=== PATIENT | female | born 1985 | race Caucasian/White ===

== ENCOUNTER 2017-11-26 19:00 | Observation (INO) | payer OTHER ==
[2017-11-26] MEDS ORDERED: SODIUM CHLORIDE 0.9% 1,000 ML IV ONE ×2 (19:38→21:56)
[2017-11-26] MEDS ORDERED: ESTROGENS, CONJUGATED 25 MG VIAL IVP STA (19:38)
--- NOTE | 2017-11-26 19:41 | ED Physician Documentation ---
History of Present Illness - Stated complaint Stated Complaint: HEAVY MENSTRUAL BLEEDING - Chief complaint Chief Complaint: General - History obtained from History obtained from: Patient, EMS - History of Present Illness Timing: Other (She had Depo-Provera the first time a couple of weeks ago. Starting 2 days ago she had heavy vaginal bleeding which was less today and then again more today. It is not painful. She had a syncopal episode today but does not feel dizzy or lightheaded when supine.) Review of Systems Ten Systems: 10 systems reviewed and negative Constitutional: denies: Fever, Chills GI: denies: Abdominal Pain, Nausea, Vomiting, Diarrhea : denies: Dysuria, Frequency PD PAST MEDICAL HISTORY - Past Medical History Past Medical History: No - Past Surgical History Past Surgical History: No - Allergies Allergies/Adverse Reactions: Allergies Allergy/AdvReac Type Severity Reaction Status Date / Time No Known Drug Allergies Allergy Verified 11/21/14 00:47 - Social History Does the pt smoke?: No Smoking Status: Never smoker Does the pt drink ETOH?: No Does the pt have substance abuse?: No - Family History Family history: reports: Non contributory - Immunizations Immunizations are current?: Yes - POLST Patient has POLST: No PD ED PE NORMAL - Vitals Vital signs reviewed: Yes (Tachycardic) - General General: Alert and oriented X 3, No acute distress - HEENT HEENT: PERRL, EOMI - Neck Neck: Supple, no meningeal sign, No bony TTP - Cardiac Cardiac: RRR, No murmur - Respiratory Respiratory: No respiratory distress, Clear bilaterally - Abdomen Abdomen: Soft, Non tender - Back Back: No CVA TTP, No spinal TTP - Extremities Extremities: No edema, No calf tenderness / cord - Neuro Neuro: Alert and oriented X 3, Normal speech Results - Vitals Vitals: Vital Signs - 24 hr 11/26/17 11/26/17 19:05 21:15 Temperature 36.8 C Heart Rate 98 106 H Respiratory 18 18 Rate Blood Pressure 101/66 O2 Saturation 100 98 Oxygen O2 Source Room air - Labs Labs: Laboratory Tests 11/26/17 11/26/17 11/26/17 19:51 19:51 19:51 WBC 15.9 H RBC 3.20 L Hgb 9.3 L Hct 27.6 L MCV 86.1 MCH 29.0 MCHC 33.6 RDW 13.3 Plt Count 309 MPV 7.3 L Neut # 12.8 H Lymph # 2.4 [place] # 0.6 Eos # 0.0 Baso # 0.1 Absolute Nucleated RBC 0.00 Nucleated RBC % 0.0 Sodium 135 Potassium 3.3 L Chloride 104 Carbon Dioxide 22 Anion Gap 9.0 BUN 17 Creatinine 0.9 Estimated GFR (MDRD) 74 L Glucose 126 H Calcium 8.4 L HCG, Quant Blood Type O NEGATIVE Antibody Screen NEGATIVE 11/26/17 11/26/17 19:51 21:19 WBC RBC Hgb 8.0 L Hct 23.6 L MCV MCH MCHC RDW Plt Count MPV Neut # Lymph # [place] # Eos # Baso # Absolute Nucleated RBC Nucleated RBC % Sodium Potassium Chloride Carbon Dioxide Anion Gap BUN Creatinine Estimated GFR (MDRD) Glucose Calcium HCG, Quant < 0.60 Blood Type Antibody Screen - Rads (name of study) Pelvic sono Radiology: EMP read contemporaneously (11mm endometrium, poss R ov or paraov cyst) PD MEDICAL DECISION MAKING - ED course ED course: 32-year-old woman with recent LEEP procedure and recently started on Depo- Provera presents with heavy vaginal bleeding, some tachycardia, and a syncopal episode. She was administered IV fluids and labs were checked notable for a hemoglobin of 9.3 and negative serum test. Ultrasound as shown. H&H rechecked after only about an hour and a half with a 1.3 point drop to 8.0 on the hemoglobin. Spoke with Dr. Ash, the on-call hydroelectric plant operator who will come in and see her and observe her for continued vaginal bleeding in the setting of worsening anemia. She had been administered IV Premarin here. Blood was readied. Departure - Departure Disposition: ED Place in Observation Clinical Impression: Vagina bleeding, Anemia due to acute blood loss Condition: Stable
[2017-11-26 20:01] LABS: BASOPHILS # (AUTO) 0.1 10^3/uL (0.0-0.1); BASOPHILS % (AUTO) 0.5 %; EOSINOPHILS % (AUTO) 0.1 %; HGB - HEMOGLOBIN 9.3 g/dL (12.0-16.0); LYMPHOCYTES # (AUTO) 2.4 10^3/uL (1.5-3.5); LYMPHOCYTES % (AUTO) 14.9 %; MEAN CORPUSCULAR HGB CONC 33.6 g/dL (32.0-36.0); MEAN CORPUSCULAR VOLUME 86.1 fL (81.0-99.0); MEAN PLATELET VOLUME 7.3 fL (7.9-10.8); MONOCYTES # (AUTO) 0.6 10^3/uL (0.0-1.0); MONOCYTES % (AUTO) 3.9 %; NEUTROPHILS # (AUTO) 12.8 10^3/uL (1.5-6.6); NEUTROPHILS % (AUTO) 80.6 %; PLT - PLATELET COUNT 309 10^3/uL (130-450); RED CELL DISTRIBUTION WIDTH 13.3 % (12.0-15.0); WHITE BLOOD COUNT 15.9 x10^3/uL (4.8-10.8)
[2017-11-26 20:08] LABS: CALCIUM 8.4 mg/dL (8.5-10.3); CREATININE 0.9 mg/dL (0.4-1.0)
--- NOTE | 2017-11-26 21:43 | Ultrasound Preliminary Report ---
Exam: US PELVIC NON OB W/DOPPLER IMPRESSION: 1. Endometrium is 11 mm in thickness. 2. No ultrasound finding to explain the vaginal bleeding. 3. Possible right adnexal or paraovarian cyst or lymph node of doubtful acute significance. [facility] SITE ID: [id number]
--- NOTE | 2017-11-26 21:43 | Ultrasound Report ---
EXAM: PELVIC ULTRASOUND WITH DOPPLER EXAM DATE: 11/26/2017 09:21 PM. CLINICAL HISTORY: Heavy vb. COMPARISON: None. TECHNIQUE: Realtime transabdominal pelvic scan performed to identify the uterus and adnexa and as an overview of other pelvic structures, with static image documentation. Doppler images obtained. FINDINGS: Uterus: 10.1 x 4 x 5.8 cm, volume 121 cc. Anteverted position. No focal uterine mass. Masses: None. Endometrium: 11 mm. No focal hypervascular area along the endometrium on the images which included Do ppler. Cervix: Unremarkable. Right Ovary: 3.2 x 1.8 x 2.8 cm, volume 8.2 cc. Normal echotexture and blood flow. There is a hypoech oic area adjacent to the right ovary measuring 1.4 x 1.1 x 1.4 cm of uncertain etiology and significa nce. Left Ovary: 3.5 x 1.6 x 1.4 cm, volume 4.2 cc. Normal echotexture and blood flow. Free Fluid: None. Other: None. IMPRESSION: 1. Endometrium is 11 mm in thickness. 2. No ultrasound finding to explain the vaginal bleeding. 3. Possible right adnexal or paraovarian cyst or lymph node of doubtful acute significance. [facility] Referring Provider Line: [phone] SITE ID: [id number]
[2017-11-26] MEDS ORDERED: oxyCODONE 5 MG TABLET PO PRN (22:57)
[2017-11-26] MEDS ORDERED: ONDANSETRON 4 MG/2 ML VIAL IVP PRN (22:57)
[2017-11-26] MEDS ORDERED: ZOLPIDEM 5 MG TABLET PO PRN (22:57)
[2017-11-26] MEDS ORDERED: SODIUM CHLORIDE FLUSH 0.9% 10 ML SYRINGE IVP PRN (22:57)
[2017-11-26] MEDS ORDERED: HYDROmorphone 1 MG/ML SYRINGE IVP PRN (22:57)
[2017-11-27] MEDS: SODIUM CHLORIDE FLUSH 0.9% 10 ML SYRINGE IVP SCH ×3 (00:46→17:44)
[2017-11-27] MEDS: D5.45NS W/20 MEQ KCL 1,000 ML IV SCH ×2 (00:55→13:58)
[2017-11-27] MEDS: IBUPROFEN 600 MG TABLET PO PRN ×2 (00:58→07:04)
--- NOTE | 2017-11-27 01:16 | HISTORY & PHYSICAL EXAMINATION ---
DATE OF SERVICE: 11/26/2017 Physician: Pranay Ash MD DIAGNOSES 1. Severe vaginal bleeding. 2. Status post LEEP procedure at [facility] 12 days ago. 3. Severe anemia. HISTORY OF PRESENT ILLNESS: The patient is a 32-year-old 3, para 2-0-1- 2, woman who underwent a LEEP procedure on 11/14/[address] Agudelo at the [facility] clinic. Post-procedure, she did not have any signs of infection and only scant bleeding. Pathology report has not been called back yet. On Friday, she began passing clots briskly. She became faint and by her account, passed out. She did not report this incident to Dr. Agudelo or anyone else. The bleeding spontaneously stopped, and she had a normal Friday. On Friday morning, she began to pass clots again and passed out. Syncope alarmed her mother, and at 1800, she came to [facility] ED by [facility]. She has not had her initial followup appointment with Dr. Agudelo; that is scheduled for the . She has received injection of Depo- Provera because her usual ParaGard IUD was removed at the time of LEEP. Currently, she reports mild orthostasis while in the hospital, and she is tachycardic with pulse of 100 but maintaining blood pressure. PAST MEDICAL HISTORY: No chronic disease history. PAST SURGICAL HISTORY: None, other than LEEP, mentioned above. ALLERGIES: NONE. MEDICATIONS: None. SOCIAL HISTORY: [place] , lives at home with her 3 children. Her currently away in [place] on [employer] business. No drug, tobacco or alcohol use. FAMILY HISTORY: No notable history. No gynecologic cancers. REVIEW OF SYSTEMS CONSTITUTIONAL: Weak, "woozy." HEENT: Negative. PULMONARY: Negative. CARDIAC: Negative. GI: Negative. BREASTS: Negative. : Dysplasia as noted above, otherwise negative. Last menstrual period is . Menstrual intervals at times irregular and bleeding heavy. MUSCULOSKELETAL: Negative. SKIN: Negative. NEUROLOGIC: Negative. PSYCHIATRIC: Negative. PHYSICAL EXAMINATION GENERAL: The patient is lying comfortably in bed, quite composed and calm, alert and cooperative. VITAL SIGNS: Temperature 98.2, initial pulse 98, current 106, blood pressure 101/66, respirations 18, saturation 98%. HEENT: Supple neck. No thyromegaly. Moist membranes. LUNGS: Clear to auscultation. CARDIAC: Tachycardic flow murmur, no gallop. BREASTS: Deferred. ABDOMEN: Soft, nontender, flat. EXTERNAL GENITALIA: Normal hair distribution. VAGINA: Old clotted blood in the vault. No lesions or discharge. CERVIX: Friable, clot in place. Vaginal packing placed. Cervix not well visualized because of adherent blood clot. UTERUS: Normal size, anteverted, anteflexed. Ovaries normal. EXTREMITIES: Warm, dry. Moves all 4 extremities well. NEUROLOGIC: Grossly intact. No sensory or motor disturbances noted. Cranial nerves intact. SKIN: Skin survey finds no rash or lesions. LABORATORY DATA: 1999 hemoglobin 9.3. 2114 hemoglobin 8.0. Normal indices, platelets 309. Sodium 135, potassium mildly depressed at 3.3, carbon dioxide 22, glucose 126, calcium 8.4. HCG negative. ASSESSMENT AND PLAN: The patient has experienced a substantial bleed post-LEEP procedure and suspect that there has been some dislodgement of the eschar clot. Though she is symptomatic from the blood loss, current exam does not find bleeding to be ongoing. However , given a hemoglobin of 8, it would be prudent to watch her in case she has another bout of severe bleeding. She has been previously typed and screened. Endometrial stripe of 11 is not unusual in a menstruating woman. There are no fibroids or any other explanation for the bleeding. PLAN: Vagina packed to stabilize LEEP crater clot. Hospital observation, serial CBC, IV fluid support, and reevaluation in 12 hours. TD: 11/27/2017 01:15 HANK
[2017-11-27 07:28] LABS: BASOPHILS # (AUTO) 0.1 10^3/uL (0.0-0.1); BASOPHILS % (AUTO) 0.7 %; EOSINOPHILS % (AUTO) 0.3 %; LYMPHOCYTES # (AUTO) 2.2 10^3/uL (1.5-3.5); LYMPHOCYTES % (AUTO) 24.9 %; MEAN CORPUSCULAR HEMOGLOBIN 29.1 pg (27.0-31.0); MEAN CORPUSCULAR HGB CONC 33.2 g/dL (32.0-36.0); MEAN CORPUSCULAR VOLUME 87.7 fL (81.0-99.0); MEAN PLATELET VOLUME 7.9 fL (7.9-10.8); MONOCYTES # (AUTO) 0.5 10^3/uL (0.0-1.0); MONOCYTES % (AUTO) 5.9 %; NEUTROPHILS % (AUTO) 68.2 %; PLT - PLATELET COUNT 229 10^3/uL (130-450); RED BLOOD COUNT 2.26 10^6/uL (4.20-5.40); WHITE BLOOD COUNT 8.8 x10^3/uL (4.8-10.8)
[2017-11-27 07:31] LABS: HGB - HEMOGLOBIN 6.6 g/dL (12.0-16.0)
[2017-11-27] MEDS ORDERED: diphenhydrAMINE INJ 50 MG/ML VIAL IVP PRN (08:24)
--- NOTE | 2017-11-27 08:58 | PROVIDER PROGRESS NOTE ---
Subjective - General Admit Date: 11/26/17 Procedure Date: 11/27/17 Post Op Days: 0 Procedure Performed: Intended procedure, Stormorf sutures of the cervix; dilatation and curettag - Review of Systems Wound/Incisions: positive: Other (Packing in place and no bleedthrough evident) General: positive: Fatigue, Other (Mild orthostatic change) HEENT: positive: No symptoms Pulmonary: positive: No symptoms Cardiovascular: positive: No symptoms Gastrointestinal: positive: No symptoms Genitourinary: positive: Other (Vaginal bleeding noted last night on admission) Musculoskeletal: positive: No symptoms Skin: positive: No symptoms Neurological: Psychiatric: positive: No symptoms Objective - Patient Data Vital Signs: Vital Signs x48h Temp Pulse Resp BP Pulse Ox 11/27/17 08:38 115 H 118/59 L 11/27/17 08:20 99.0 F 105 H 18 83/45 L 100 11/27/17 05:45 98.1 F 109 H 17 94/50 L 100 Weight: Weight 11/25/17 11/26/17 11/27/17 23:59 23:59 23:59 Weight (kg) 52.163 kg 53.5 kg Intake & Output: Intake and Output Totals x24h 11/25/17 11/26/17 11/27/17 23:59 23:59 23:59 Intake Total 1324.167 Output Total 575 Balance 749.167 - Lab Results Lab Results: 11/27/17 07:03 11/26/17 19:51 Other Lab Results: Lab Results x24hrs 11/27/17 Range/Units 07:03 WBC 8.8 (4.8-10.8) x10^3/uL RBC 2.26 L (4.20-5.40) 10^6/uL Hgb 6.6 L* (12.0-16.0) g/dL Hct 19.8 L* (37.0-47.0) % MCV 87.7 (81.0-99.0) fL MCH 29.1 (27.0-31.0) pg MCHC 33.2 (32.0-36.0) g/dL RDW 13.0 (12.0-15.0) % Plt Count 229 (130-450) 10^3/uL MPV 7.9 (7.9-10.8) fL Neut # 6.0 (1.5-6.6) 10^3/uL Lymph # 2.2 (1.5-3.5) 10^3/uL [place] # 0.5 (0.0-1.0) 10^3/uL Eos # 0.0 (0.0-0.7) 10^3/uL Baso # 0.1 (0.0-0.1) 10^3/uL Absolute Nucleated RBC 0.00 x10^3/uL Nucleated RBC % 0.0 /100WBC - Current Medications Current Medications: Current Medications Generic Name Dose Route Start Last Admin Trade Name Freq PRN Reason Stop Dose Admin Potassium Chloride/Dextrose/Sod Cl 1,000 mls @ 100 mls/hr 11/26/17 23:00 07:08 D5.45ns W/20 Meq Kcl IV 100 mls/hr .Q10H MARQUEZ Infusion Ibuprofen 600 mg 11/26/17 22:57 11/27/17 07:04 Motrin PO 600 mg Q6HR PRN Administration Pain 1 to 4 Sodium Chloride 10 ml 11/27/17 01:00 11/27/17 00:46 Normal Saline Flush 0.9% IVP Not Given 0100,0900,1700 [facility] Physical Exam - Physical Exam General: positive: Alert, Other (Mild anxiety) HEENT: positive: Moist mucous membranes Neck: positive: Supple w/out meningeal sx Cardiac: positive: Regular Rate, Murmur Present (Flow murmur) Resipratory: positive: Clear to ausultation roberto Abdomen: positive: Normal Bowel sounds, Other (No tenderness) Female : positive: Other (Vaginal packing dry) Extremities: positive: No pedal edema, Other (Fingertips cool) Neurologic: positive: Alert and Oriented X 3, Normal Sensation, Normal Speech Assessment/Plan - Assessment/Plan Assessment: . Patient currently has a deep anemia as documented by a hemoglobin of 6. Do not believe the patient to be currently bleeding but rather the effects of large amounts of hemorrhage on Friday and Friday. Apparent source of the bleeding is the LEEP wound. Packing is stabilized the clot momentarily on the LEEP crater but on removal there is a significant probability of recurrent bleeding. Therefore cervical Sturmdorf sutures are indicated. Patient's anemia is becoming symptomatic and transfusion is necessary. Plan: . Today's plan * Transfusion of 1 unit packed red blood cells this morning. * Delay removal of packing until in the OR. * Placement of cervical sutures. Dilatation and curettage. * Possible placement of intrauterine device. * Requested copy of LEEP procedure report inclusive of cervical pathology from the [facility]. * Discussed plan with patient. OR and anesthesia informed.
[2017-11-27] MEDS ORDERED: ALPRAZolam 0.25 MG TABLET PO SCH (09:00)
[2017-11-27] MEDS: POLYETHYLENE GLYCOL 3350 17 GM PACKET PO SCH (09:44)
[2017-11-27] MEDS ORDERED: LACTATED RINGERS 1,000 ML IV ONE ×2 (14:40→16:05)
[2017-11-27] MEDS ORDERED: DEXAMETHASONE 4 MG/ML VIAL IVP ONE (16:00)
[2017-11-27] MEDS ORDERED: ceFAZolin 1 GM VIAL IV ONE (16:00)
[2017-11-27] MEDS ORDERED: ONDANSETRON 4 MG/2 ML VIAL IVP ONE (16:00)
[2017-11-27] MEDS ORDERED: MIDAZOLAM 2 MG/2 ML VIAL IVP ONE (16:00)
[2017-11-27] MEDS ORDERED: fentaNYL 250 MCG/5 ML VIAL IVP ONE (16:00)
[2017-11-27] MEDS ORDERED: PROPOFOL 200 MG/20 ML VIAL IVP ONE (16:00)
[2017-11-27] MEDS ORDERED: BACITRACIN OINT TOP ONE (16:22)
[2017-11-27] MEDS ORDERED: LORazepam 2 MG/ML VIAL IVP PRN (16:54)
[2017-11-27] MEDS ORDERED: LACTATED RINGERS 1,000 ML IV SCH (17:00)
--- NOTE | 2017-11-27 17:03 | OPERATIVE REPORT ---
Operative Report - General Admit Date: 11/26/17 Procedure Date: 11/27/17 Planned Procedure: Suturing cervix; dilatation and curettage; IUD insertion Pre-Op Diagnosis: Post LEEP procedure bleeding and severe anemia; status post transfusion Procedure Performed: Modified Stormdorf cervical sutures; dilatation and curettage; placement of Surgicel material on bleeding LEEP wound Post Op Diagnosis: Post LEEP procedure bleeding and severe anemia; status post transfusion - Procedure Note Primary Surgeon: Pranay Ash MD Anesthesia Provider: Florencio Martines certified nurse jewelry casting model maker apprentice Anesthesia Technique: General ET tube Pathology: Scant endometrial scrapings sent IV Fluids (mL): 600 Estimated Blood Loss (mL): 100 Urine Output (mL): 400 Complications: None
[2017-11-27] MEDS ORDERED: ACETAMINOPHEN 1,000 MG/100 ML 100 ML IV ONE (17:24)
--- NOTE | 2017-11-27 19:41 | OPERATIVE REPORT ---
DATE OF SERVICE: Physician: Pranay Ash MD PREOPERATIVE DIAGNOSES 1. Severe bleeding after recent LEEP procedure. 2. Severe anemia, status post transfusion of 1 unit of packed red blood cells. POSTOPERATIVE DIAGNOSES 1. Continued bleeding after removal of packing. 2. Severe bleeding after recent LEEP procedure. 3. Severe anemia, status post transfusion of 1 unit of packed red blood cells. PROCEDURES 1. Modified Sturmdorf cervical sutures. 2. Dilatation and curettage. 3. Placement of Surgicel material on bleeding LEEP wound. SURGEON: Pranay Ash MD, FACOG, FICS ANESTHESIA: Florencio Martines CRNA ANESTHESIA TYPE: General, ET tube placed. PATHOLOGY: Scant endometrial scrapings. COMPLICATIONS: None. IV FLUIDS: 600. BLOOD LOSS: 100. URINE OUTPUT: 400. MEDICATIONS: Two grams Ancef IV. FINDINGS 1. Exam under anesthesia finds the external genitalia without notable lesions. The packing had been previously removed. Within the upper vault of the vagina there was still bleeding from predominantly the left hemisphere of the LEEP crater. There was a clot present. Uterus is normal size and anteverted. Sounding is 7 cm. Scant uterine endometrium obtained and sent to pathology. 2. On the cuff crater there were cautery changes and ragged tissue. Because of the possible infection risk and endometritis, IUD was not placed. The raw tissue was affectively stanched with placement of Surgicel packing into the crater. TECHNIQUE: Prior to the procedure, I discussed the situation with the patient, including risks and benefits of surgery. Since the bleeding has continued since pulling the pack, she did strongly desired surgery to speed her recovery. If possible, she would like her IUD replaced. INDICATIONS: The patient is aware that suturing the cervix, particularly with Sturmdorf sutures, may cause cervical stenosis and make achieving and carrying a difficult. She does not intend to have any more children and therefore accepts this risk. DESCRIPTION OF PROCEDURE: The patient was brought to the operating room, placed on the table in the supine position. She was uneventfully induced and intubated. She was moved to the low dorsal lithotomy position. She was prepped and draped in a customary sterile fashion. Preoperative timeout briefing was done per protocol. Exam under anesthesia was done. Continued bleeding was found. A weighted speculum was placed in the posterior cervix and a right angle speculum superiorly. This provided adequate visualization of the cervix. A single-tooth tenaculum was placed on the anterior cervical lip. Using a sounding probe and then a serial application of Hegar probes was done to dilate the cervix to Hegar size 9. A small curette was introduced and a small amount of endometrial tissue was produced with curetting. A #9 suction curet was then introduced and a little more tissue was harvested. At this time, dilatation and curettage phase of the procedure was complete. Modified Sturmdorf sutures were placed. Eight modified Sturmdorf sutures were placed around the cervix equal distance. The suture style was basically through the body of the cervix, then into the endocervical canal, and then at the very distal portion of the cone incision. They were turned tightly so as to jenny the underlying cot cone while constricting the cervical stroma. After completion of this, hemostasis was excellent. There were some portions deeper that continued to ooze. Two sheets of Surgicel then were placed into the cone crater and using retention stitches at 3 and 9 o'clock position, it was fixed firmly against the raw surface. We observed for 5 minutes to ensure there was no bleed through. At this point, the procedure was complete. All sponge, needle, and instrument counts were confirmed as correct. The patient was uneventfully aroused from general anesthesia. The patient and her were made aware of intraoperative events. CBC will be drawn at 8:00 to obtain a post-transfusion hemoglobin level. TD: 11/27/2017 19:41
[2017-11-27 20:06] LABS: BASOPHILS # (AUTO) 0.1 10^3/uL (0.0-0.1); BASOPHILS % (AUTO) 0.4 %; EOSINOPHILS % (AUTO) 0.1 %; HGB - HEMOGLOBIN 8.5 g/dL (12.0-16.0); LYMPHOCYTES # (AUTO) 1.2 10^3/uL (1.5-3.5); LYMPHOCYTES % (AUTO) 6.9 %; MEAN CORPUSCULAR HEMOGLOBIN 28.7 pg (27.0-31.0); MEAN CORPUSCULAR HGB CONC 32.9 g/dL (32.0-36.0); MEAN CORPUSCULAR VOLUME 87.2 fL (81.0-99.0); MONOCYTES # (AUTO) 0.3 10^3/uL (0.0-1.0); NEUTROPHILS # (AUTO) 15.5 10^3/uL (1.5-6.6); NEUTROPHILS % (AUTO) 90.6 %; PLT - PLATELET COUNT 247 10^3/uL (130-450); RED BLOOD COUNT 2.96 10^6/uL (4.20-5.40); RED CELL DISTRIBUTION WIDTH 13.7 % (12.0-15.0); WHITE BLOOD COUNT 17.1 x10^3/uL (4.8-10.8)
[2017-11-27 20:51] LABS: DIFFERENTIAL COMMENT MANUAL=AUTO DIFF; PLATELET ESTIMATE, MANUAL NORMAL (130-450,000) (NORMAL); PLATELET MORPHOLOGY NORMAL APPEARANCE (NORMAL); RBC MORPHOLOGY (MULTIPLE) 2+ SPHEROCYTES (NORMAL)
[2017-11-27] MEDS: DOCUSATE SODIUM 100 MG CAPSULE PO SCH (21:53)
[2017-11-28] MEDS: IBUPROFEN 600 MG TABLET PO PRN ×2 (00:02→08:55)
[2017-11-28] MEDS: D5.45NS W/20 MEQ KCL 1,000 ML IV SCH (00:03)
[2017-11-28] MEDS: SODIUM CHLORIDE FLUSH 0.9% 10 ML SYRINGE IVP SCH (00:04)
--- NOTE | 2017-11-28 08:11 | PROVIDER PROGRESS NOTE ---
Subjective - Prog Note Date Prog Note Date: 11/28/17 Prog Note Time: 08:00 - Subjective Pt reports feeling: Improved (Overall patient feels well. She is able to shower and do self-care activities. She is holding down solids and fluids well. She does have a headache secondary to her anemia. Vaginal bleeding reported as minimal spotting.She was given discharge instructions. Pain medications previously written. She will follow-up on Friday) Objective - Vital Signs/Intake & Output Intake & Output: Intake & Output 11/25/17 11/26/17 11/27/17 11/28/17 23:59 23:59 23:59 23:59 Intake Total 3622.500 0 Output Total 1025 Balance 2597.500 0 - Lab Results Fish Bones: 11/27/17 20:00 11/26/17 19:51 Other Labs: Lab Results x24hrs 11/27/17 Range/Units 20:00 WBC 17.1 H (4.8-10.8) x10^3/uL RBC 2.96 L (4.20-5.40) 10^6/uL Hgb 8.5 L (12.0-16.0) g/dL Hct 25.8 L (37.0-47.0) % MCV 87.2 (81.0-99.0) fL MCH 28.7 (27.0-31.0) pg MCHC 32.9 (32.0-36.0) g/dL RDW 13.7 (12.0-15.0) % Plt Count 247 (130-450) 10^3/uL MPV 8.0 (7.9-10.8) fL Neut # 15.5 H (1.5-6.6) 10^3/uL Lymph # 1.2 L (1.5-3.5) 10^3/uL [place] # 0.3 (0.0-1.0) 10^3/uL Eos # 0.0 (0.0-0.7) 10^3/uL Baso # 0.1 (0.0-0.1) 10^3/uL Absolute Nucleated RBC 0.00 x10^3/uL Band Neuts % (Manual) Not Reportable Abnorm Lymph % (Manual) Not Reportable Nucleated RBC % 0.0 /100WBC Neutrophils # (Manual) Not Reportable Lymphocytes # (Manual) Not Reportable Monocytes # (Manual) Not Reportable Eosinophils # (Manual) Not Reportable Basophils # (Manual) Not Reportable Differential Comment MANUAL=AUTO DIFF Manual Slide Review Indicated Platelet Estimate NORMAL (130-450,000) (NORMAL) Platelet Morphology NORMAL APPEARANCE (NORMAL) RBC Morph Micro Appear 2+ SPHEROCYTES (NORMAL)
--- NOTE | 2017-11-28 08:25 | Discharge Plan ---
Discharge Plan Disposition: 01 Home, Self Care Condition: Stable Diet: Regular (Recommend high-fiber diet with iron rich foods such as red meats spinach etc. please provide a handout on iron rich foods) Activity Restrictions: Activity as Tolerated (For the next week would not recommend rigorous activity but patient can walk and that is strongly recommended) Shower Restrictions: No Driving Restrictions: Yes (Patient should not drive while taking narcotic medications) Weight Bearing: Full Weight No Smoking: If you smoke, Please STOP! Call for help. Follow-up with: TADEO LIN [Primary Care Provider] - Pranay Ash MD [Provider Admit Priv/Credential] -
[2017-11-28 08:28] VITALS: BP 96/56
[2017-11-28] MEDS: DOCUSATE SODIUM 100 MG CAPSULE PO SCH (08:56)
[2017-11-28] MEDS: POLYETHYLENE GLYCOL 3350 17 GM PACKET PO SCH (08:58)
--- NOTE | 2017-11-28 09:11 | DISCHARGE SUMMARY ---
Physician: Pranay Ash MD DATE OF ADMISSION: 11/26/2017 DATE OF DISCHARGE: 11/28/2017 DIAGNOSES 1. Severe vaginal bleeding. 2. Status post loop electrosurgical excision procedure at [facility] 12 days ago. 3. Severe and symptomatic anemia, requiring transfusion. PROCEDURE: Placement of cervical Sturmdorf stitches (modified), dilatation and curettage. COMPLICATIONS: None. 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 Agudelo at [facility]. Reviewed the procedure note and it was uneventful. Pathology revealed low grade HIMA 1 type changes. She had an injection of Depo-Provera as bridge contraception because of removal of IUD during her LEEP. On Friday, she had a large bleed and became faint. This spontaneously resolved until Friday. On Friday morning, she began to pass clots again and actually became syncopal. This alarmed her mother and the patient was brought to [facility] ED by Bilyl Shen. HOSPITAL COURSE: The patient was evaluated in the ED. The believed source of the bleeding was the LEEP crater wound. Ultrasound was essentially normal, without myometrial or endometrial pathology. She did have a history of menorrhagia in the past. Vaginal packing was placed to stabilize the clot on the LEEP crater surface. Baseline hemoglobin was 9.3 with normal indices and platelets. Two hours post initial ED draw, hemoglobin descended to 8. She was hospitalized for observation without any apparent continued bleeding. By morning, hemoglobin had descended to 6.6. Discontinuation of packing found some bleeding, but not enough to explain the 3 gram drop. The patient was transfused with 1 unit of packed red blood cells, since she was symptomatic. The patient required intervention to limit her blood loss and to prevent another large hemorrhage at home. Sturmdorf type sutures were recommended. Additionally, since the uterine/endometrial component of her blood loss was uncertain, a D and C was recommended. She desired IUD to be placed if possible. The patient was taken to the operating room and placed under general anesthesia. She underwent uneventful suturing of the cervix with a modified Sturmdorf technique. The [TIME: 07:10] crater was everted as to ensure that future Pap smears were accurate. D and C obtained little tissue. During exam under anesthesia, the bleeding was confirmed to be from the apex of the cone and portions of the base on the right side. Surgery effectively stopped the blood loss and anticoagulant fabric was sutured into place on the LEEP crater surface. Postoperatively, the patient did well, gradually advancing to a full diet and self-care activity. Hemoglobin stabilized at 8.5 and there was mild leukocytosis at 17.1. During the procedure, topical antibiotic/bacitracin was placed in the upper vaginal vault. On postoperative day 1, the patient felt well and was taking nutrition well. She showered. She did have persistent headache from anemia. We reviewed warning signs and instructions in preparation for discharge. DISCHARGE MEDICATIONS 1. Motrin 600 q.6 hours. 2. [place] 325/5 one to 2 tabs q.4 hours p.r.n. breakthrough pain. 3. Colace 250 b.i.d. 4. vitamins with iron. 5. Slow iron [TIME: 09:49]. FOLLOWUP: The patient will be seen next week to inspect sutures at [facility]. After that point, she will continue to follow at [facility]. TD: 11/28/2017 09:09
== END 2017-11-28 10:10 | disposition home or self-care (01) ==
LOC: EDUNIT# → ED 19:00 → OBS 23:02
PROVIDERS: ADMIT Obstetrics & Gynecology; ATTEND Obstetrics & Gynecology
PROC: 0UQC7ZZ Repair Cervix, Via Natural or Artificial Opening (ICD-10-PCS; 2017-11-27)
PROC: 0UDB7ZX Extraction of Endometrium, Via Natural or Artificial Opening, Diagnostic (ICD-10-PCS; principal; 2017-11-27 14:30)
DX: N99.820 Postprocedural hemorrhage of a genitourinary system organ or structure following a genitourinary system procedure (principal); D62 Acute posthemorrhagic anemia; Y83.8 Other surgical procedures as the cause of abnormal reaction of the patient, or of later complication, without mention of misadventure at the time of the procedure; Y92.234 Operating room of hospital as the place of occurrence of the external cause; Z87.410 Personal history of cervical dysplasia
CPT/HCPCS: 36415; 36430; 57720; 58120; 76856; 80048; 84702; 85014; 85018; 85025; 86850; 86900; 86901; 86920; 93975; 96361; 96374; 96375; 99284; 99285; A9270; G0378; J0131; J1200; J3010; J7120; P9016